=== PATIENT | male | born 1955 | race Caucasian/White ===

== ENCOUNTER 2017-01-25 19:42 | Emergency (ER) | payer MEDICARE, OTHER ==
--- NOTE | ~2017-01-25 | CR181 ---
[facility]. [facility] A Service of [facility] & [facility] RADIOLOGY TEXT RESULTS PATIENT: TAMIR BARRETT JR LOCATION: SED : 55 UNIT #: [id number] AGE: [address]: Gabriel Persaud SEX: M ORDER DR: [id number] [place] [id number] E MR#: [id number] Acc #: [id number] NAME: TAMIR BARRETT : 1955 SEX: M STUDY DATE/TIME: 01/25/2017 19:40 UNIT: SED ROOM: STUDY DESCRIPTION: CR Lumbar Spine 2 or 3 Views Attending Physician: Gabriel Persaud P.A.-C. Ordering Physician: Gabriel Persaud P.A.-C. Primary Care Physician: Galina Delgado M.D. MEDICAL IMAGING REPORT This report is preliminary unless electronic signature is present. EXAM Lumbar spine 3 views HISTORY Back pain for 4 days after a fall. FINDINGS 3 views of the lumbar spine demonstrate moderate lumbar curve. Multilevel fusion from the ipk-ta-nhwou lumbar spine. Low lumbar laminectomies. Moderate multilevel hypertrophic and degenerative changes. Mild chronic compression of the superior endplate of L5. IMPRESSION No acute findings. Multilevel lub-wn-zraaa lumbar spinal fusion and lower lumbar laminectomies. Moderate multilevel degenerative and hypertrophic changes. Dictated by... James Acevedo M.D. THIS IS AN ELECTRONICALLY VERIFIED REPORT James Acevedo M.D. at 01/27/2017 3:28 PM ZACK/uysuf TD: 01/26/2017 10:49 JOB #: [id number] MEDICAL IMAGING REPORT
--- NOTE | ~2017-01-25 | CR63 ---
[facility] [place]. [facility] A Service of [facility] & [facility] RADIOLOGY TEXT RESULTS PATIENT: TAMIR BARRETT JR LOCATION: SED : 55 UNIT #: [id number] AGE: [address]: Gabriel Persaud SEX: M ORDER DR: [id number] [place] [id number] E MR#: [id number] Acc #: [id number] NAME: TAMIR BARRETT : 1955 SEX: M STUDY DATE/TIME: 01/25/2017 19:40 UNIT: SED ROOM: STUDY DESCRIPTION: CR Chest 2 View Attending Physician: Gabriel Persaud P.A.-C. Ordering Physician: Gabriel Persaud P.A.-C. Primary Care Physician: Galina Delgado M.D. MEDICAL IMAGING REPORT This report is preliminary unless electronic signature is present. EXAM PA and lateral chest HISTORY Right lower back pain and cough for 4 days. Recent fall. FINDINGS 2 views of the chest demonstrate the cardiac size and pulmonary vascularity are normal. Spinal stimulator leads extend over the mid and lower thoracic spinal canal. No airspace consolidation or pleural effusion. Mild linear atelectasis or scarring in the lateral left base. Left shoulder prosthesis. IMPRESSION No acute findings and no active disease in the chest. Dictated by... James Acevedo M.D. THIS IS AN ELECTRONICALLY VERIFIED REPORT James Acevedo M.D. at 01/27/2017 3:28 PM DFL/ashu TD: 01/26/2017 10:02 JOB #: [id number] MEDICAL IMAGING REPORT
[~2017-01-25 19:42] MED LIST: ACCUPRIL10 MG PO; ACCUPRIL5 MG PO; ADVAIR 250-501 EACH IH; ADVAIR 500-501 EACH IH; ADVAIR 500-501 EACH IN; ALBUTEROL MININEB; ALBUTEROL1.25 MG/3 NEB; ALBUTEROL17 GM INH; ALPRAZOLAM PO; ALPRAZOLAM0.25 MG PO; AMBIEN10 MG PO; AMITRIPTYLINE100 MG PO; ASPIRIN EC81 M1 PO; ASPIRIN ENTERI325 M1 PO; ASPIRIN325 M1 PO; ASPIRIN81 M2 PO; ASTELIN; ASTELIN137 MCG; ASTELIN137 MCG INH; ASTELIN137 MCG NS; ASTEPRO137 MCG/0.; ASTEPRO205.5 MCG/; ATENOLOL50 MG PO; AUGMENTIN PO; BACLOFEN10 MG PO; BAYER CHEWABLE81 MG; BUPROPION HCL150 M1 PO; CARVEDILOL12.5 MG PO; CIPRO PO; CLEOCIN PO; COMBIVENT U/D3 M1 NEB; COREG12.5 MG PO; CYMBALTA PO; DIOVAN160 MG PO; EFFIENT10 MG PO; FISH OIL 1,0001 CA2 PO; FISH OIL 1,0001 EAC1 PO; FISH OIL 1,0001 EAC2 PO; FISH OIL 1,001000 MG PO; FISH OIL 1,2001 EAC2 PO; FISH OIL 1,21 CAP.EC PO; FLEXERIL10 M1 PO; FLEXERIL10 MG PO; FLONASE 0.05% N16 G1; FLONASE 0.05% N16 G1 NS; FLONASE 0.05% N16 GM; FLONASE16 GM; FLUCONAZOLE200 M1; GLUCOPHAGE500 MG PO; HUMALOG100 U/M1 SUBQ; HUMALOG100 U/M2; HUMALOG100 U/M2 SQ; HUMALOG100 U/ML; HUMIBID; HYDROCODON-ACE1 EAC5 PO; L-METHYL-B6-B11 EACH PO; LANTUS SOLOSTAR3 ML SUBQ; LANTUS100 U/M1 SUBQ; LANTUS100 U/ML SQ; LANTUS100 UNITS/ SUBQ; LEVAQUIN750 M1 PO; LEVOFLOXACIN500 MG PO; LIPITOR PO; LIPITOR20 MG PO; LISINOPRIL5 MG PO; LO-DOSE ASPIRIN81 M1; LORTAB 7.5-5001 TAB PO; LYRICA300 MG PO; METFORMIN HCL500 M1 PO; METFORMIN PO; MONTELUKAST SOD10 MG PO; MULTIPLE VITAMI1 T11 PO; NEURONTIN300 MG PO; NIACIN1000 MG PO; NITROGLYGERIN0.4 MG SL; NITROSTAT0.4 MG SL; NOVOLOG; NOVOLOG100 U/M1; NOVOLOG100 U/M2 SQ; NOVOLOG100 U/ML SUBQ; OMEPRAZOLE40 MG PO; OXYCODONE HCL10 MG PO; PERCOCET 5-3251 TAB PO; PERCOCET5/325 PO; PHENERGAN25 M1; PHENERGAN25 M1 PO; PHENERGAN25 MG PO; PRILOSEC20 MG PO; PRILOSEC40 MG PO; PROAIR HFA8.5 GM; PROAIR HFA8.5 GM IH; PROAIR HFA8.5 GM INH; PROVENTIL0.83 MG/ML IH; PROVENTIL0.83 MG/ML IN; PROVENTIL0.83 MG/ML NEB; SEE LIST; SPIRIVA18 MCG INH; SPIRIVA18 MCG PO; SUPHEDRINE SINU30 MG PO; SYMBICORT 16010.2 GM; SYMBICORT INH; TOVIAZ8 MG PO; TRAMADOL HCL50 M1 PO; TYLENOL #3 PO; VICODIN 5/1 TAB 5/50 PO; XANAX0.5 MG PO; ZESTRIL5 MG PO; ZOFRAN PO; ZOLPIDEM TARTRA10 M1 PO; ZYRTEC PO; ZYRTEC10 M2 PO; [UNRECOGNIZED DRUG - CODE]; [UNRECOGNIZED DRUG - OTHER] PO; [UNRECOGNIZED DRUG - OTHER] TOP
== END 2017-01-25 20:38 | disposition home or self-care (01) ==
LOC: SED 19:42
DX: S39.92XA Unspecified injury of lower back, initial encounter (principal); S29.9XXA Unspecified injury of thorax, initial encounter; F17.210 Nicotine dependence, cigarettes, uncomplicated; Z88.2 Allergy status to sulfonamides; Z88.0 Allergy status to penicillin; Z88.5 Allergy status to narcotic agent; Z79.899 Other long term (current) drug therapy; W18.39XA Other fall on same level, initial encounter; Y92.098 Other place in other non-institutional residence as the place of occurrence of the external cause
CPT/HCPCS: 71020; 72100; 99283

== ENCOUNTER → 2017-04-17 | Outpatient (CLI) | payer OTHER ==
[~2017-04-17] MED LIST changes: +ALPRAZOLAM0.5 MG PO; +AMRIX15 M1 PO; +ANORO ELLIPTA1 EACH INH; +BUPROPION XL150 MG PO; +DULOXETINE HCL60 MG PO; +IBUPROFEN800 MG PO; +LANTUS100 U/ML SUBQ; +LIPITOR40 MG PO; +NEURONTIN PO; +PERCOCET 5/321 UDTAB PO; +RESTORIL15 MG PO; +SINGULAIR PO; +TOPROL XL50 MG PO; +VESICARE PO; +ZOFRAN ODT4 MG SL
--- NOTE | ~2017-04-17 | XA35 ---
[facility] A Service of [facility] & [facility] RADIOLOGY TEXT RESULTS PATIENT: TAMIR BARRETT JR LOCATION: [facility] : 55 UNIT #: [id number] AGE: [address]: TYLER SAL APRN SEX: M ORDER DR: [id number] [place] [id number] [facility]. [place], [place] [address] [id number] O MR#: [id number] Acc #: [id number] NAME: TAMIR BARRETT JR : 1955 SEX: M STUDY DATE/TIME: 04/17/2017 10:44 UNIT: [facility] ROOM: STUDY DESCRIPTION: XA Arthrogram Shoulder Rt Attending Physician: Tyler Sal Aprn Referring Physician: Tyler Sal Aprn Ordering Physician: Tyler Sal Aprn Primary Care Physician: Galina Delgado M.D. MEDICAL IMAGING REPORT This report is preliminary unless electronic signature is present PROCEDURE Right shoulder arthrogram. INDICATION Right shoulder pain. Prior rotator cuff surgery. The fluoroscopy time was 1.3 minutes. The reference air kerma is 13 mg. Risks, benefits and alternatives of the procedure were discussed with the patient, informed consent was obtained. In the procedure room, a time-out was performed confirming correct patient and procedure. All elements maximum sterile-barrier technique utilized according guidelines appropriate for the procedure. TECHNIQUE/FINDINGS The patient was placed on the fluoroscopic table and skin overlying the right shoulder was prepped and draped in the usual sterile fashion. 1% lidocaine was utilized to anesthetize the skin and underlying subcutaneous tissues. Next, under fluoroscopic guidance, a 22-gauge needle was advanced into the shoulder joint space using the interval approach. Approximately 8 mL of iodinated contrast was then injected into the joint space. The needle was removed and a sterile dressing was applied. Spot images were taken. Patient was then taken to CT for completion of the exam. IMPRESSION Technically successful right shoulder arthrogram in preparation for CT arthrography. Dictated by... Carlos Ortega M.D. THIS IS AN ELECTRONICALLY VERIFIED REPORT [facility] A Service of [facility] & [facility] RADIOLOGY TEXT RESULTS PATIENT: TAMIR BARRETT JR LOCATION: [facility] #: [id number] : 55 UNIT #: [id number] AGE: [address]: TYLER SAL APRN SEX: M ORDER DR: Carlos Ortega M.D. at 04/18/2017 9:50 AM KATHY/obey TD: 04/17/2017 21:40 JOB #: [id number] MEDICAL IMAGING REPORT Page 1 of 1 COPY
--- NOTE | ~2017-04-17 | CT128 ---
[facility] A Service of [facility] & [facility] RADIOLOGY TEXT RESULTS PATIENT: TAMIR BARRETT JR LOCATION: [facility] : 55 UNIT #: [id number] AGE: [address]: TYLER SAL APRN SEX: M ORDER DR: [id number] [facility] [address] [place], [place] [address] [id number] O MR#: [id number] Acc #: [id number] NAME: TAMIR BARRETT JR : 1955 SEX: M STUDY DATE/TIME: 04/17/2017 11:10 UNIT: [facility] ROOM: STUDY DESCRIPTION: CT Upper Ext Rt W Cont Attending Physician: Tyler Sal Aprn Referring Physician: Tyler Sal Aprn Ordering Physician: Tyler Sal Aprn Primary Care Physician: Galina Delgado M.D. MEDICAL IMAGING REPORT This report is preliminary unless electronic signature is present EXAM CT arthrogram right shoulder HISTORY 62-year-old male with a glenohumeral joint osteoarthritis. Complains of shoulder pain. Evaluate for rotator cuff tear. History of rotator cuff repair in 2003. Pain beginning 2-3 weeks ago, but getting worse. COMPARISON Conventional arthrogram 04/17/[address] arthrogram was performed of the right shoulder following the intraarticular injection of water-soluble contrast. Examination demonstrates mild superior subluxation of the humeral head. Morphologic changes along the undersurface of the acromion suggest previous acromioplasty. Minimal AC joint arthropathy. Early glenohumeral joint osteoarthritis with a small osteophyte, inferior aspect of the humeral head. Contrast is seen within the glenohumeral joint with communication of the subacromial-subdeltoid bursa through a full-thickness tear within the critical zone of the rotator cuff, primarily the supraspinatus tendon, measuring 2 cm medial to lateral x 2.2 cm AP dimension. There is also a second visible tear at the anterior distal footplate insertion of the supraspinatus tendon, measuring about 1.2 cm medial to lateral x 1.7 cm AP dimension. Suture anchors are noted about the lateral aspect of the humeral head. The infraspinatus, teres minor, and subscapularis tendons appear intact. Mild atrophy of the supraspinatus muscle. The long tendon of the biceps is not clearly identified, possibly representing a biceps tendon tear. There is truncation in the region of STS. [facility] A Service of [facility] RADIOLOGY TEXT RESULTS PATIENT: TAMIR BARRETT JR [id number] 55 UNIT #: [id number] AGE: [address]: TYLER SAL APRN SEX: M ORDER DR: the biceps anchor, and this may be postsurgical in nature. Correlate clinically. Anterior and posterior labrum unremarkable. Articular cartilage unremarkable. IMPRESSION 1. CT findings compatible with recurrent rotator cuff tear with a 2 x 2.2 cm full-thickness tear within the critical zone of the supraspinatus tendon. I suspect this is in communication with an additional tear along the anterior footplate insertion of the supraspinatus tendon measuring about 1.2 x 1.7 cm. Mild supraspinatus muscle atrophy. 2. Mild AC joint arthropathy. 3. Morphologic changes suggesting previous acromioplasty. 4. Suspected tear of the long tendon of the biceps with no visible tendon seen within the bicipital groove. Dictated by... Jeimy Ortega M.D. THIS IS AN ELECTRONICALLY VERIFIED REPORT Jeimy Ortega M.D. at 04/21/2017 8:01 AM Hang TD: 04/17/2017 17:01 JOB #: [id number] MEDICAL IMAGING REPORT Page 1 of 1 COPY
== END | disposition home or self-care (01) ==
LOC: CIVR 10:06
DX: M19.011 Primary osteoarthritis, right shoulder (principal); M75.121 Complete rotator cuff tear or rupture of right shoulder, not specified as traumatic; Z98.890 Other specified postprocedural states
CPT/HCPCS: 73040; 73201; 77002; Q9967

== ENCOUNTER 2017-06-06 20:01 | Inpatient (IN) | payer OTHER ==
[~2017-06-06] VITALS: Ht 172.7 cm; Wt 98.4 kg
--- NOTE | ~2017-06-06 | CO ---
Unit #: [id number] #: [id number] Patient: TAMIR BARRETT JR [id number] [facility]. [place], [place] [address] [id number] I MR#: [id number] NAME: TAMIR BARRETT JR ROOM: 301 Age: 62 Sex: M Admission Date: 06/07/2017 : 1955 Attending Physician: Luis Mercer M.D. Primary Care Physician: Galina Delgado M.D. Consultation Date: 06/07/2017 CONSULTATION REPORT REASON FOR CONSULTATION Psychosis, agitation, delirium. HISTORY OF PRESENT ILLNESS Mr. Tamir Barrett is a 62-year-old white male, seen in room 301 bed 1 at [facility] on 06/07/2017. The patient was admitted on 06/07/2017. The patient diagnosed with pneumonia and altered mental status. The patient currently receives pain management from pain management doctor and has a pump. On admission, the patient was confused and agitated. The patient was belligerent, aggressive, throwing things, taken out his IV. Subsequently, the patient was given Haldol 10 mg, Cogentin 1 mg, Ativan 1 mg which was somewhat effective. The patient was able to calm down. Needing a sitter. The patient is still picking on things, carrying out conversation, attending to internal stimuli, but redirectable, cooperative, but still having psychotic symptom. No known history of any substance abuse. History of multiple health conditions. The patient's vital signs; temperature 98.3, pulse 116, respirations 18, blood pressure 137/64, oxygen saturations 96%. PAST PSYCHIATRIC HISTORY Unknown for any history of any psychiatric illness except for anxiety. The patient is on Xanax. No history of any suicide attempt or any inpatient treatment. MEDICAL HISTORY The patient is diagnosed with pneumonia, altered mental status, history of chronic pain syndrome, chronic obstructive pulmonary disease, gastroesophageal reflux disease, coronary artery disease, multiple myocardial lesion, spinal stenosis, depression, anxiety, hyperlipidemia, insulin-dependent diabetes mellitus. ALLERGIES To multiple medications including Keflex, penicillin, sulfa. MEDICATIONS The patient is on Lipitor, Amrix, Percocet, Neurontin, ibuprofen, Xanax, VESIcare, Zofran, bupropion, Cymbalta, Restoril, Glucophage, Lantus, Flonase, Toprol, Singulair. FAMILY HISTORY AND SOCIAL HISTORY The patient lives alone. No known history of any abuse. No known history of any illicit drug abuse or alcohol abuse. REVIEW OF SYSTEMS Unit #: [id number] #: [id number] Patient: TAMIR BARRETT JR Complete review of systems is unremarkable except as mentioned above agitation. MENTAL STATUS EXAMINATION Vital signs; temperature 98.3, pulse 116, respirations 18, blood pressure 137/64, oxygen saturation 96%. General appearance; the patient dressed in hospital attire. The patient was picking on things. Mood was labile. Disorganized behavior, disorganized thought process. Speech was rapid and rambling. Oriented in self. Mood and affect, labile. Thought process, circumstantial. Thought content, guarded and paranoid, but denied any thoughts of harming self or others, but aggressive behavior, hostile, and agitated. Recent and remote memory, impaired. Language fair. Fund of knowledge, impaired. Insight and judgment, impaired. DIAGNOSES Psychiatric: Delirium, F05; psychosis, not otherwise specified, F29.0; major depressive disorder, recurrent, severe, F31.9. Secondary diagnosis: Deferred. Medical diagnosis: Please refer to H and P. Stressors: Psychosocial stressors. ASSESSMENT AND PLAN 1. Supportive psychotherapy and psychoeducation provided to the patient, but the patient unable to comprehend much. 2. Advised to continue with one-on-one sitter at this time for the patient's safety. 3. Advised to start the patient on Haldol 5 mg t.i.d., Cogentin 1 mg t.i.d. and Ativan 1 mg t.i.d. Advised to hold medication if the patient too sleepy. If unable to take p.o., recommending to use intramuscular route. Also plan to cut back on the patient's antidepressant at this time and consider to start at later date. We will continue to follow. Please feel free to call if any questions telephone [phone]. Dictated by... Zurdo Chow M.D. TEVIN/que TD: 06/08/2017 21:06 JOB #: [id number] CONSULTATION REPORT Page 1 of 1 X Zurdo Chow MD CONSULTATION REPORT
--- NOTE | ~2017-06-06 | EKG ---
PATIENT: TAMIR BARRETT UNIT #: [id number] Ventricular Rate: 121 BPM Atrial Rate: 121 BPM P-R Interval: 174 ms QRS Duration: 108 ms Q-T Interval: 312 ms QTC Calculation(Bezet): 443 ms P Denver: 59 degrees Calculated R Denver: 18 degrees Calculated T Denver: 64 degrees Diagnosis Line: Sinus tachycardia Diagnosis Line: Otherwise normal ECG Diagnosis Line: When compared with ECG of 06-JUN-2017 21:33, Diagnosis Line: (unconfirmed) Diagnosis Line: No significant change was found Diagnosis Line: Confirmed by JESSICA AVILA MD ([id number]) on Diagnosis Line: 06/07/2017 5:42:15 PM INTERPRETING MD: AUSTIN OKEEFE
--- NOTE | ~2017-06-06 | HP ---
Unit #: [id number] #: [id number] Patient: TAMIR BARRETT JR [id number] [place] [address] [id number] [facility]. [place], [place] [address] [id number] I MR#: [id number] NAME: TAMIR BARRETT JR ROOM: 301 Age: 62 Sex: M Admission Date: 06/07/2017 : 1955 Attending Physician: Ottoniel Fisher M.D. Primary Care Physician: Galina Delgado M.D. HISTORY AND PHYSICAL DIAGNOSIS ON ADMISSION 1. Pneumonia. 2. Altered mental status. HISTORY OF PRESENT ILLNESS This is a 62-year-old male, who presented to [facility] with weakness. As per patient, he was in his usual state of health and one week ago he went to his pain management doctor, and the patient believes that he changed his medication. The patient stated that he started feeling a bit confused and yesterday he was very confused and agitated. Therefore, he was brought to the hospital. The patient stated that he was seeing things and people who were not there. He feels better now. In the emergency room, the patient was diagnosed with pneumonia and it was decided to admit him in the hospital. The patient is complaining of chills but denies having any fever. He also complained of nausea but denies vomiting or abdominal pain. The patient complains of shortness of air with ambulation. He denies headache, visual problems, rectal bleeding, or blood in urine. There is no history of recent weight loss or loss of appetite. PAST MEDICAL HISTORY 1. History of chronic pain syndrome. 2. Chronic obstructive pulmonary disease. 3. Gastroesophageal reflux disease. 4. Coronary artery disease. 5. Multiple myocardial infarctions. 6. Chronic low back pain with pain pump. 7. Coronary artery disease. 8. Spinal stenosis. 9. Depression. 10. Anxiety disorder. 11. Hyperlipidemia. 12. Insulin dependent diabetes mellitus. PAST SURGICAL HISTORY 1. Cardiac stent in place in 2010. 2. Back surgery. 3. Mastoidectomy. 4. Repair of deviated septum. 5. Right shoulder repair. 6. Carpal tunnel release. Unit #: [id number] #: [id number] Patient: TAMIR BARRETT JR 7. Left hand surgery. 8. Rotator cuff repair, right. SOCIAL HISTORY The patient lives alone, smokes one pack of cigarettes per day for the past many years, denies drinking or use of illicit drugs. FAMILY HISTORY Positive for heart disease. ALLERGIES The patient is allergic to multiple medications including, Keflex, penicillins, sulfa. HOME MEDICATIONS The patient is on: 1. Lipitor 40 mg p.o. q.h.s. 2. Amrix 15 mg p.o. daily 3. Percocet 5 mg 1-2 tablets q.4h p.r.n. 4. Neurontin 1200 mg p.o. t.i.d. 5. Ibuprofen 800 mg p.o. b.i.d. 6. Alprazolam 0.5 mg p.o. t.i.d. p.r.n. 7. Vesicare 5 mg p.o. daily 8. Zofran 4 mg q.4h p.r.n. 9. Anoro Ellipta one inhalation daily 10. Bupropion 150 mg p.o. b.i.d. 11. Cymbalta 60 mg p.o. daily 12. Restoril 15 mg p.o. q.h.s. 13. Glucophage 500 mg p.o. b.i.d. 14. Albuterol two puffs q.6h p.r.n. 15. Lantus 34 units subcu q.h.s. 16. Flonase nasal spray daily 17. Toprol XL 50 mg daily 18. Singulair 10 mg p.o. daily PHYSICAL EXAMINATION GENERAL: The patient was lying comfortably in bed, not in any obvious acute distress. VITAL SIGNS: Reveal a temperature of 98.6, pulse is 116 per minute, respiratory rate is 18 per minute, and blood pressure is 137/64. HEENT EXAMINATION: Revealed no conjunctival congestion. Sclerae is nonicteric. NECK: Supple. Trachea is central. RESPIRATORY EXAMINATION: Revealed breath sounds equal bilaterally. There are no wheezes or crackles. HEART: Regular rate and rhythm. S1 and S2. ABDOMEN: Soft and nontender. Bowel sounds are present in all four quadrants. NEUROLOGICAL: The patient is alert to person, place and time. Power is 5/5 bilaterally. Sensations are grossly intact. SKIN: Warm and dry. DIAGNOSTIC STUDIES LABORATORY: Labs on admission, the patient's creatinine is 0.9, sodium 136, potassium 3.7, AST and ALT within normal limits. Troponin was 0.03, BNP was 56. WBC is 14.3, hemoglobin is 10.8, platelet count is 234. Urine drug screen was positive for opiates and tricyclic antidepressants. Unit #: [id number] #: [id number] Patient: TAMIR BARRETT JR IMAGING: CT scan of the head, did not reveal any acute intracranial abnormalities. Chest x-ray revealed mild patchy infiltrates in the mid and lower lungs bilaterally. CARDIOVASCULAR: EKG revealed sinus tachycardia. ASSESSMENT/PLAN Hwshe-mjj-gfxm-old male, presented to [facility] with altered mental status: 1. Altered mental status, likely secondary to the patient's pain pump and medication change, we will request Dr. Ren Wright to see the patient in consultation. He is gradually improving. 2. Pneumonia, bilaterally, community acquired, the patient is on antibiotics, will observe the patient closely. 3. History of depression and anxiety disorder, will request Dr. Chow to see the patient in consultation and is currently on a 72-hour hold. 4. Type 2 diabetes mellitus, will do serial Accu-Cheks, place the patient on sliding scale. 5. Anxiety disorder, patient's Ativan. 6. Hyperlipidemia. The patient is on Lipitor. The patient is a full code. The plan was discussed in detail with the patient who showed complete understanding. Dictated by Dipesh Toribio/itzel TD: 06/07/2017 15:26 JOB #: [id number] HISTORY AND PHYSICAL Page 1 of 1 X Ottoniel Fisher MD X HISTORY AND PHYSICAL
--- NOTE | ~2017-06-06 | CT71 ---
[facility] A Service of [facility] RADIOLOGY TEXT RESULTS PATIENT: TAMIR BARRETT JR LOCATION: [facility] : 55 UNIT #: [id number] AGE: [address]: Ottoniel Fisher MD SEX: M ORDER DR: [id number] [facility] [address] [place], [place] [address] [id number] I MR#: [id number] Acc #: [id number] NAME: TAMIR BARRETT JR : 1955 SEX: M STUDY DATE/TIME: 06/06/2017 23:04 UNIT: A U ROOM: [address] [place] [address] DESCRIPTION: CT Head Wo Contrast Attending Physician: Evangelist Zhao M.D. Ordering Physician: Fabián Morin D.O. Primary Care Physician: Galina Delgado M.D. MEDICAL IMAGING REPORT This report is preliminary unless electronic signature is present EXAM CT head without contrast INDICATIONS Confusion since this morning. PROCEDURE Unenhanced CT head. This CT exam was performed with one or more of the following radiation dose reduction techniques: automatic control, adjustment of mA and/or kV according to patient size, and iterative reconstruction. COMPARISON 08/27/2016 FINDINGS No acute hemorrhage, abnormal mass effect, extraaxial fluid collection or hydrocephalus. Previous left mastoidectomy. Paranasal sinuses are clear. No calvarial fracture. No definitive evidence for an acute or early subacute large territory infarct. IMPRESSION No acute intracranial findings Dictated by... Deon Zheng M.D. THIS IS AN ELECTRONICALLY VERIFIED REPORT Deon Zheng M.D. at 06/07/2017 10:26 PM SCOTT/debbie TD: 06/07/2017 05:48 JOB #: [id number] [facility] A Service of [facility] RADIOLOGY TEXT RESULTS PATIENT: TAMIR BARRETT JR LOCATION: [facility] : 55 UNIT #: [id number] AGE: [address]: Ottoniel Fisher MD SEX: M ORDER DR: MEDICAL IMAGING REPORT Page 1 of 1 COPY
--- NOTE | ~2017-06-06 | CO ---
Unit #: [id number] #: [id number] Patient: TAMIR BARRETT JR [id number] [facility] [address] [place], [place] [address] [id number] I MR#: [id number] NAME: TAMIR BARRETT JR ROOM: 301 Age: 62 Sex: M Admission Date: 06/07/2017 : 1955 Attending Physician: Luis Mercer M.D. Primary Care Physician: Galina Delgado M.D. Consultation Date: 06/08/2017 CONSULTATION REPORT DISCUSSION Mr. Tamir Barrett is a 62-year-old white male, seen in room 301, bed 1 on 06/08/2017 at [facility]. The patient was seen as a followup. The patient was agitated this morning and aggressive, hostile, and needing one-to-one monitoring and was given Haldol 10 mg, Cogentin 1 mg, Ativan 1 mg intramuscular as a now dose. The patient's Haldol was changed yesterday and tolerating medication fairly well. The patient has a history of previous treatment outpatient and carries a diagnosis of bipolar mood disorder. The patient's medication antidepressant was discontinued yesterday considering possible being in a manic state. The patient is currently on Haldol 5 mg t.i.d., no side effects from medication. Still attending to internal stimuli, talking to imaginary people, needing one-to-one monitoring, disorganized behavior, and disorganized thought process. The patient's vital signs; temperature 97.6, heart rate 108, respiratory rate 22, blood pressure 108/42, oxygen saturation 97%. REVIEW OF SYSTEMS Complete review of systems is unremarkable except as mentioned above. MENTAL STATUS EXAMINATION General appearance; the patient dressed in hospital attire, sitting in chair, constantly fiddling with wires. Attention span and concentration, poor. Speech was disorganized. Oriented in place and person. Mood and affect, labile. Thought process, circumstantial. Thought content; guarded, paranoid, mood lability, but denied any thoughts of harming self or others, but having disorganized behavior, paranoid, attending to internal stimuli. Recent and remote memory, poor. Language, fair. Fund of knowledge, fair to slightly impaired. Insight and judgment, impaired. DIAGNOSES Psychiatric: Psychosis, not otherwise specified, F29.0; delirium, F05; major depressive disorder, recurrent, severe, F33.2; bipolar mood disorder, recurrent, mixed, F31.9. ASSESSMENT/PLAN 1. Supportive psychotherapy and psychoeducation provided to the patient, but the patient unable to comprehend much. 2. Recommending at this time to continue with one-to-one monitoring. Continue with current medication and [facility] as the patient is medically stable for inpatient psychiatric stabilization. Unit #: [id number] #: [id number] Patient: TAMIR BARRETT Dictated by... Dipesh Gauthier/que TD: 06/09/2017 01:30 JOB #: [id number] CONSULTATION REPORT Page 1 of 1 X Zurdo Chow MD X CONSULTATION REPORT
--- NOTE | ~2017-06-06 | CR72 ---
[facility] A Service of [facility] & [facility] RADIOLOGY TEXT RESULTS PATIENT: TAMIR BARRETT JR LOCATION: [facility] 301- : 55 UNIT #: [id number] AGE: [address]: Ottoniel Fisher MD SEX: M ORDER DR: [id number] [facility] [address]. [place], [place] [address] [id number] MR#: [id number] Acc #: [id number] NAME: TAMIR BARRETT JR : 1955 SEX: M STUDY DATE/TIME: 06/06/2017 20:58 UNIT: CEDOF ROOM: 75062 STUDY DESCRIPTION: CR Chest Single View Portable Attending Physician: Evangelist Zhao M.D. Ordering Physician: Fabián Morin D.O. Primary Care Physician: Galina Delgado M.D. MEDICAL IMAGING REPORT This report is preliminary unless electronic signature is present EXAM Portable chest HISTORY Shortness of air for 6 days. Cough and congestion. FINDINGS Mild patchy interstitial infiltrates in the mid and lower lungs bilaterally are new compared to 01/25/2017. Consider infectious or inflammatory etiologies or interstitial pulmonary edema. No focal consolidation of the remainder of the lungs. Remainder of the chest is stable including spinal stimulator leads overlying the mid and lower thoracic spine. Dictated by... James Acevedo M.D. THIS IS AN ELECTRONICALLY VERIFIED REPORT James Acevedo M.D. at 06/07/2017 6:10 PM DFL/debbie TD: 06/07/2017 03:27 JOB #: [id number] MEDICAL IMAGING REPORT Page 1 of 1 COPY
--- NOTE | ~2017-06-06 | DS ---
Unit #: [id number] #: [id number] Patient: TAMIR BARRETT JR [id number] [address] [place], [place] [address] [id number] I MR#: [id number] NAME: TAMIR BARRETT JR ROOM: 301 Age: 62 Sex: M Admission Date: 06/07/2017 : 1955 Discharge Date: 06/08/2017 Attending Physician: Luis Mercer M.D. Primary Care Physician: Galina Delgado M.D. DISCHARGE SUMMARY PRIMARY DIAGNOSIS Toxic encephalopathy/psychosis/manic episode. SECONDARY DIAGNOSES 1. Pneumonia. 2. Diabetes mellitus type 2. 3. Chronic back pain. 4. Coronary artery disease, clinically stable, with history of stent. HISTORY OF PRESENT ILLNESS/HOSPITAL COURSE Mr. Tamir Barrett is a 62-year-old white male with a history of polysubstance abuse and alcohol abuse, although he denies any recently. He is on chronic pain management with Dr. Ren Wright and did have his pain pump adjusted approximately a week before admission with an increased dose. Pain management did come in and decrease his opiate settings by 1/3 on the ; however, this did not make any changes, and his alterations in mental status are not really consistent with overdose of opiates alone. He denies any recent alcohol abuse, and while some of his symptoms are similar to delirium tremens, this seems more likely to be an acute manic episode or an acute psychosis. He was treated for his pneumonia with Levaquin and has been showing clinical improvement. He has been afebrile, and his white blood cell count has been going down. We will continue him on Levaquin for an additional 7 days at discharge. He needs continued inpatient psychiatric treatment and will be transferred to [facility]. DISCHARGE DISPOSITION [facility]. DISCHARGE STATUS Medically stable but not stable psychiatrically. DISCHARGE ACTIVITY Ad sudhir. DISCHARGE DIET Diabetic, low salt diet. DISCHARGE MEDICATIONS 1. ProAir HFA 2 puffs q.6 hours p.r.n. shortness of breath. 2. Flonase 0.05% nasal spray 1 spray NA daily. 3. Trazodone 50 mg p.o. q.h.s. p.r.n. insomnia. 4. Glucophage 500 mg p.o. b.i.d. Unit #: [id number] #: [id number] Patient: TAMIR BARRETT JR 5. Zofran 4 mg p.o. q.4 hours p.r.n. nausea. 6. Anoro Ellipta 62.5/25 mcg 1 inhalation daily. 7. Cogentin 1 mg p.o. or IM t.i.d. 8. Haldol 5 mg either p.o. or IM t.i.d. 9. Ativan 1 mg p.o. or IM t.i.d. 10. Metoprolol succinate XL 100 mg p.o. once daily. 11. VESIcare 5 mg p.o. daily. 12. Lipitor 40 mg p.o. q.h.s. 13. Levemir 17 units subcu b.i.d. 14. NovoLog medium dose sliding scale a.c. and q.h.s. 15. Singulair 10 mg p.o. daily. 16. Flexeril 15 mg p.o. daily at 1800 hours. 17. Levaquin 750 mg p.o. daily for 7 more days. Dictated by... Dipesh Willoughby/sebastian TD: 06/08/2017 14:55 JOB #: [id number] DISCHARGE SUMMARY Page 1 of 1 X Luis Mercer MD X DISCHARGE SUMMARY
[~2017-06-06 20:01] MED LIST changes: -ALPRAZOLAM0.5 MG PO; -AMRIX15 M1 PO; -ANORO ELLIPTA1 EACH INH; -BUPROPION XL150 MG PO; -DULOXETINE HCL60 MG PO; -IBUPROFEN800 MG PO; -LANTUS100 U/ML SUBQ; -LIPITOR40 MG PO; -NEURONTIN PO; -PERCOCET 5/321 UDTAB PO; -RESTORIL15 MG PO; -SINGULAIR PO; -TOPROL XL50 MG PO; -VESICARE PO; -ZOFRAN ODT4 MG SL
[2017-06-06 21:53] LABS: BASOPHIL# 0.1 X10e3 (0-0.3); BASOPHIL% 0.6 % (0-2.5); HEMATOCRIT 34.3 % (38.0-50.0); HEMOGLOBIN 11.2 gm/dL (13.0-16.0); LYMPHOCYTE# 1.8 X10e3 (1.0-3.5); LYMPHOCYTE% 9.5 % (17.0-45.0); MEAN CELL VOLUME 88.2 FL (83-96); MEAN CORPUSCULAR HEMOGLOBIN 28.8 PG (28-34); MEAN CORPUSCULAR HGB CONC 32.6 g/dL (30-36); MEAN PLATELET VOLUME 8.2 FL (6.5-11.5); MONOCYTE# 1.5 X10e3 (0-1.0); MONOCYTE% 7.7 % (3.0-12.0); NEUTROPHIL# 15.6 X10e3 (1.5-7.1); NEUTROPHIL% 82.2 % (40-75); PLATELET COUNT 255 X10e3 (140-420); RED BLOOD COUNT 3.89 X10e (3.90-5.60); RED CELL DISTRIBUTION WIDTH 14.1 % (11.0-15.5)
[2017-06-06 21:54] LABS: DIFF IND YES
[2017-06-06 22:04] LABS: INR 1.2; PARTIAL THROMBOPLASTIN TIME 36.2 SECONDS (23.5-31.3); PROTHROMBIN TIME (PATIENT) 12.7 SECONDS (10.0-11.7)
[2017-06-06 22:11] LABS: ACETAMINOPHEN <10 ug/mL; ALCOHOL BLOOD <5 mg/dL ([0,]); SALICYLATE <4.0 mg/dL
[2017-06-06 22:14] LABS: ALBUMIN SERUM 3.4 g/dL (3.5-5.0); BILIRUBIN, DIRECT 0.2 mg/dL (0.0-0.2); BILIRUBIN,INDIRECT 0.8 mg/dL (0.0-0.9); GLOM FILT RATE Estimated 80.3 mL/min (>60); POTASSIUM 3.7 mmol/L (3.5-5.1); PROTEIN TOTAL SERUM 7.4 g/dL (6.0-8.3)
[2017-06-06 22:23] LABS: PLATELET ESTIMATE NORMAL (NORMAL)
[2017-06-06 22:24] LABS: ANISOCYTOSIS SL; POIKILOCYTOSIS SL
[2017-06-06 22:25] LABS: DIFFERENTIAL COMMENT ATY.LYMPHS
[2017-06-07] MEDS ORDERED: LIPITOR40 MG PO (01:06)
[2017-06-07] MEDS ORDERED: AMRIX15 M1 PO (01:07)
[2017-06-07] MEDS ORDERED: PERCOCET 5/321 UDTAB PO (01:08)
[2017-06-07] MEDS ORDERED: NEURONTIN PO (01:09)
[2017-06-07] MEDS ORDERED: IBUPROFEN800 MG PO (01:09)
[2017-06-07] MEDS ORDERED: VESICARE PO (01:10)
[2017-06-07] MEDS ORDERED: ALPRAZOLAM0.5 MG PO (01:10)
[2017-06-07] MEDS ORDERED: ZOFRAN ODT4 MG SL (01:11)
[2017-06-07] MEDS ORDERED: ANORO ELLIPTA1 EACH INH (01:11)
[2017-06-07] MEDS ORDERED: DULOXETINE HCL60 MG PO (01:12)
[2017-06-07] MEDS ORDERED: BUPROPION XL150 MG PO (01:12)
[2017-06-07] MEDS ORDERED: RESTORIL15 MG PO (01:13)
[2017-06-07] MEDS ORDERED: GLUCOPHAGE500 MG PO (01:13)
[2017-06-07] MEDS ORDERED: PROAIR HFA8.5 GM INH (01:14)
[2017-06-07] MEDS ORDERED: LANTUS100 U/ML SUBQ (01:14)
[2017-06-07] MEDS ORDERED: FLONASE 0.05% N16 G1 (01:15)
[2017-06-07] MEDS ORDERED: TOPROL XL50 MG PO (01:15)
[2017-06-07] MEDS ORDERED: SINGULAIR PO (01:16)
[2017-06-07 03:06] LABS: AMPHETAMINE NEG (NEG); BARBITURATES NEG (NEG); BENZODIAZEPINES NEG (NEG); COCAINE NEG (NEG); MARIJUANA NEG (NEG); OPIATES POS (NEG); TRICYCLIC ANTIDEPRESSANTS POS (NEG); U METHADONE NEG (NEG)
[2017-06-07 09:27] LABS: BASOPHIL# 0.1 X10e3 (0-0.3); BASOPHIL% 0.5 % (0-2.5); EOSINOPHIL% 0.1 % (0.0-7.0); HEMATOCRIT 33.4 % (38.0-50.0); HEMOGLOBIN 10.8 gm/dL (13.0-16.0); LYMPHOCYTE# 1.8 X10e3 (1.0-3.5); LYMPHOCYTE% 12.6 % (17.0-45.0); MEAN CELL VOLUME 88.9 FL (83-96); MEAN CORPUSCULAR HEMOGLOBIN 28.7 PG (28-34); MEAN CORPUSCULAR HGB CONC 32.3 g/dL (30-36); MEAN PLATELET VOLUME 8.2 FL (6.5-11.5); MONOCYTE# 1.3 X10e3 (0-1.0); MONOCYTE% 9.1 % (3.0-12.0); NEUTROPHIL# 11.1 X10e3 (1.5-7.1); NEUTROPHIL% 77.7 % (40-75); PLATELET COUNT 234 X10e3 (140-420); RED BLOOD COUNT 3.76 X10e (3.90-5.60); RED CELL DISTRIBUTION WIDTH 14.1 % (11.0-15.5); WHITE BLOOD COUNT 14.3 X10e3 (4.0-10.5)
[2017-06-07 09:30] LABS: DIFF IND NO
[2017-06-07 09:57] LABS: ALBUMIN SERUM 3.1 g/dL (3.5-5.0); BILIRUBIN,TOTAL 0.8 mg/dL (0.2-2.0); BUN/CREATININE RATIO 12.22; CALCIUM SERUM 8.8 mg/dL (8.4-10.2); CREATININE SERUM 0.9 mg/dL (0.6-1.4); GLOM FILT RATE Estimated 91.2 mL/min (>60); POTASSIUM 3.7 mmol/L (3.5-5.1); PROTEIN TOTAL SERUM 6.9 g/dL (6.0-8.3)
[2017-06-08 05:45] LABS: HEMATOCRIT 33.8 % (38.0-50.0); MEAN CELL VOLUME 89.1 FL (83-96); MEAN CORPUSCULAR HGB CONC 32.5 g/dL (30-36); MEAN PLATELET VOLUME 8.3 FL (6.5-11.5); RED BLOOD COUNT 3.79 X10e (3.90-5.60); RED CELL DISTRIBUTION WIDTH 14.3 % (11.0-15.5); WHITE BLOOD COUNT 10.5 X10e3 (4.0-10.5)
[2017-06-08 06:55] LABS: BUN/CREATININE RATIO 15.55; CALCIUM SERUM 9.3 mg/dL (8.4-10.2); CREATININE SERUM 0.9 mg/dL (0.6-1.4); GLOM FILT RATE Estimated 91.2 mL/min (>60); POTASSIUM 3.6 mmol/L (3.5-5.1)
== END 2017-06-08 20:03 | DRG 193 ==
LOC: CED 20:01 → CEDOF 06-07 01:39 → C3A PCU 06-07 01:39
PROVIDERS: Emergency Medicine; Internal Medicine
DX: J18.9 Pneumonia, unspecified organism (principal); G93.41 Metabolic encephalopathy; F33.3 Major depressive disorder, recurrent, severe with psychotic symptoms; F05 Delirium due to known physiological condition; E11.9 Type 2 diabetes mellitus without complications; I25.10 Atherosclerotic heart disease of native coronary artery without angina pectoris; G89.4 Chronic pain syndrome; J44.9 Chronic obstructive pulmonary disease, unspecified; K21.9 Gastro-esophageal reflux disease without esophagitis; I25.2 Old myocardial infarction; M54.5 Low back pain; F41.9 Anxiety disorder, unspecified; E78.5 Hyperlipidemia, unspecified; Z79.4 Long term (current) use of insulin; F17.210 Nicotine dependence, cigarettes, uncomplicated
CPT/HCPCS: 36415; 70450; 71010; 80048; 80053; 80076; 80307; 82947; 83605; 83880; 84484; 85025; 85027; 85379; 85610; 85730; 87040; 93005; 94640; 94760; 96361; 96365; 96367; 99285; G0480; J0515; J1630; J1650; J1815; J1956; J2060

== ENCOUNTER 2017-06-08 13:32 | Inpatient (IN) | payer OTHER ==
[~2017-06-08] VITALS: Ht 172.7 cm; Wt 98.4 kg
--- NOTE | ~2017-06-08 | PN ---
Unit #: [id number] #: [id number] Patient: TAMIR BARRETT JR [id number] [facility] [address] [place] [address] [id number] I MR#: [id number] NAME: TAMIR BARRETT JR ROOM: [facility] Age: 62 Sex: M Admission Date: 06/08/2017 : 1955 Attending Physician: Zurdo Chow M.D. Admitting Physician: Zurdo Chow M.D. Primary Care Physician: Dipesh Mcbride PROGRESS NOTES DATE 06/15/2017 DISCUSSION Tamir Barrett is a 62-year-old male seen on 06/15/2017. Patient interviewed. Chart reviewed. Obtained information from nursing staff. Patient was pacing in the hallway. Mood was labile. Patient was able to carry out a coherent conversation but still tangential, circumstantial, guarded, mood lability. Patient according to staff report at times speaking nonsensically at times. Complete review of system unremarkable. MENTAL STATUS EXAMINATION General appearance, patient dressed casually. Attention span, concentration poor. Oriented in place and person. Mood and affect labile. Speech rapid. Thought process circumstantial. Patient denied any thoughts of harming self or others but guarded, paranoid, above mentioned behavior, disorganized thought process. Recent and remote memory poor. Insight and judgement poor. DIAGNOSES 1. Bipolar mood disorder NOS. 2. Psychosis NOS. ASSESSMENT/PLAN Advised to continue with current medication and therapeutic protocol. If needed, consider further adjustment of medication. Patient is currently on Periactin, Remeron. Also, taking haloperidol 5 mg t.i.d. Dictated by... Dipesh Gauthier/shahida TD: 06/16/2017 15:37 JOB #: [id number] Unit #: [id number] #: [id number] Patient: TAMIR BARRETT JR RAY PROGRESS NOTES Page 1 of 1 X Zurdo Chow MD X PROGRESS NOTE
--- NOTE | ~2017-06-08 | PN ---
Unit #: [id number] #: [id number] Patient: TAMIR BARRETT JR [id number] [facility] [address] [place] [address] [id number] I MR#: [id number] NAME: TAMIR BARRETT JR ROOM: [facility] Age: 62 Sex: M Admission Date: 06/08/2017 : 1955 Attending Physician: Zurdo Chow M.D. Admitting Physician: Zurdo Chow M.D. Primary Care Physician: Dipesh Mcbride PROGRESS NOTES DATE OF SERVICE 06/11/2017 DISCUSSION Mr. Tamir Barrett is a 62-year-old male seen on 06/11/2017. The patient continues to show disorganized behavior, disorganized thought process. Attending to internal stimuli. Guarded, paranoid, agitation. Requiring p.r.n. medication last night, Geodon 20 mg IM and trazodone. The patient still requiring one-to-one monitoring. Complete Review of Systems: Unremarkable. MENTAL STATUS EXAMINATION General Appearance: The patient dressed casually in hospital attire. Attention span, concentration: Poor. Orientation in self. Mood and affect labile. Speech: Disorganized thought process, disorganized, guarded, paranoid, mood lability. Attending to internal stimuli. Recent and remote memory: Poor. Insight and judgment: Poor. DIAGNOSES 1. Psychosis not otherwise specified. 2. Mood disorder not otherwise specified. ASSESSMENT/PLAN Advised to discontinue Ativan. Advised trazodone 100 mg at bedtime. Continue with one-to-one monitoring for safety. If needed, consider further adjustment of medication. Dictated by... Dipesh Gauthier/rafi TD: 06/12/2017 12:12 JOB #: [id number] Unit #: [id number] #: [id number] Patient: TAMIR BARRETT JR RAY PROGRESS NOTES Page 1 of 1 X Zurdo Chow MD PROGRESS NOTE
--- NOTE | ~2017-06-08 | PN ---
Unit #: [id number] #: [id number] Patient: TAMIR BARRETT JR [id number] [facility] [address] [place] [address] [id number] I MR#: [id number] NAME: ATMIR BARRETT JR ROOM: [facility] Age: 62 Sex: M Admission Date: 06/08/2017 : 1955 Attending Physician: Zurdo Chow M.D. Admitting Physician: Zurdo Chow M.D. Primary Care Physician: Dipesh McbrideCE PROGRESS NOTES DATE 06/13/2017 DISCUSSION Tamir Barrett is a 62-year-old male, seen on 06/13/2017. The patient interviewed, chart reviewed, and obtained information from the nursing staff. The patient was able to answer questions more coherently, still has one-to-one monitoring. The patient is able to sleep good, able to answer questions appropriately, cooperative, redirectable. Reported swelling in his left leg. The patient did not show any aggression. The patient was coherent and cooperative. REVIEW OF SYSTEMS Complete review of systems unremarkable. MENTAL STATUS EXAMINATION General appearance: Patient dressed casually. Attention span and concentration, fair. Oriented in time, place, and person. Mood and affect, labile. Speech, monotone. Thought process, concrete. The patient denied any thoughts of harming self or others but somewhat guarded. Recent and remote memory, poor. Insight and judgment, poor. DIAGNOSES 1. Mood disorder, NOS. 2. Psychosis, NOS. ASSESSMENT/PLAN Advised to continue with the current medication and therapeutic protocol, and if needed consider further adjustment of medication. Dictated by... Dipesh Gauthier/itzel TD: 06/15/2017 11:44 JOB #: [id number] Unit #: [id number] #: [id number] Patient: TAMIR BARRETT JRCE PROGRESS NOTES Page 1 of 1 X Zurdo Chow MD PROGRESS NOTE
--- NOTE | ~2017-06-08 | CO ---
Unit #: [id number] #: [id number] Patient: TAMIR BARRETT JR [id number] [place] [address] [id number] I MR#: [id number] NAME: TAMIR BARRETT JR ROOM: P110 Age: 62 Sex: M Admission Date: 06/08/2017 : 1955 Attending Physician: Zurdo Chow M.D. Primary Care Physician: Galina Delgado M.D. Consultation Date: 06/16/2017 CONSULTATION REPORT This is a followup to an initial consult. HISTORY OF PRESENT ILLNESS Tamir has a history of diabetes. His blood sugars have been 87 to 118. He also has depression and has not been eating well. Staff has been concerned about his poor intake. He is a little disoriented and does not answer questions appropriately all the time. PHYSICAL EXAMINATION CARDIAC: Regular rate and rhythm. No murmurs, gallops, or rubs. RESPIRATORY: Clear to auscultation bilaterally. GENERAL: Alert, disoriented, no acute distress. ASSESSMENT AND PLAN Decreased food intake with type 2 diabetes. We will continue with the sliding scale insulin. We will also add Ensure t.i.d. and daily weights in the morning. Please also repeat a BMP in the morning. Dictated by... Opal Esteban/que TD: 06/17/2017 00:45 JOB #: [id number] CONSULTATION REPORT Page 1 of 1 X DARRYN DUPONT APRN X CONSULTATION REPORT
--- NOTE | ~2017-06-08 | HP ---
Unit #: [id number] #: [id number] Patient: TAMIR BARRETT JR [id number] [place] [address] [id number] I MR#: [id number] NAME: TAMIR BARRETT JR ROOM: [facility] Age: 62 Sex: M Admission Date: 06/08/2017 : 1955 Attending Physician: Zurdo Chow M.D. Admitting Physician: Zurdo Chow M.D. Primary Care Physician: Galina Delgado M.D. HISTORY AND PHYSICAL NOTE Tamir is a 62-year-old male admitted to [address] [place] [address] on 06/08/2017 for psychosis. He was transferred here from [facility] where he was admitted on 06/07/2017 for pneumonia. He was started on Levaquin, and blood work was improving. He was transferred here. Reviewed the history and physical from [facility] on 06/07/2017, and there are no changes. Dictated by... Opal Esteban/rafi TD: 06/09/2017 12:46 JOB #: [id number] HISTORY AND PHYSICAL Page 1 of X DARRYN DUPONT APRN HISTORY AND PHYSICAL
--- NOTE | ~2017-06-08 | CO ---
Unit #: [id number] #: [id number] Patient: TAMIR BARRETT JR [id number] [place] [address] [id number] I MR#: [id number] NAME: ATMIR BARRETT JR ROOM: [facility] Age: 62 Sex: M Admission Date: 06/08/2017 : 1955 Attending Physician: Zurdo Chow M.D. Primary Care Physician: Galina Delgado M.D. Consultation Date: 06/08/2017 CONSULTATION REPORT HISTORY OF PRESENT ILLNESS Tamir reports a history of type 2 diabetes. He takes Levemir b.i.d. 17 units at home and metformin p.o. daily. He also reports that recently he has started taking insulin with his meals as well. Today, he had a fasting blood sugar of 208, but his lunchtime blood sugar was 50, dinner was 91 and his bedtime was 139. He denies feeling poorly when his blood sugar was 50, however, he currently is a poor historian. PHYSICAL EXAMINATION CARDIAC: Regular rate and rhythm. No murmurs, gallops, or rubs. RESPIRATORY: Clear to auscultation bilaterally. ASSESSMENT AND PLAN Type 2 diabetes. We will continue with his current regimen. Lowest blood sugar was 50. He has had no other low blood sugars other than that. His blood sugars are consistently less than 70. Please notify me, we will need to change his insulin regimen. Dictated by... Opal Esteban/que TD: 06/11/2017 02:57 JOB #: [id number] CONSULTATION REPORT Page 1 of 1 X DARRYN DUPONT APRN X CONSULTATION REPORT
--- NOTE | ~2017-06-08 | PN ---
Unit #: [id number] #: [id number] Patient: TAMIR BARRETT JR [id number] [facility] [address] [place] [address] [id number] I MR#: [id number] NAME: TAMIR BARRETT JR ROOM: P110 Age: 62 Sex: M Admission Date: 06/08/2017 : 1955 Attending Physician: Zurdo Chow M.D. Admitting Physician: Zurdo Chow M.D. Primary Care Physician: Dipesh Mcbride PROGRESS NOTES DATE 06/16/2017 DISCUSSION Tamir is a 62-year-old male, seen on 06/16/2017. The patient interviewed, chart reviewed, and obtained information from the nursing staff. The patient was isolative, currently off from one-to-one. The patient reports that he could live with his mother. The patient tried to call mom, telephone number [phone], and left a message. The patient was refusing to eat majority of the meals, still isolative, flat affect, sad, dysphoric but the patient is tolerating medication fairly well, redirectable. REVIEW OF SYSTEMS Complete review of systems unremarkable. MENTAL STATUS EXAMINATION General appearance: Patient dressed casually. Attention span and concentration, fair. Oriented in time, place, and person. Mood and affect, sad and dysphoric. Speech, monotone. Thought process, concrete. The patient denied any thoughts of harming self or others but sad and dysphoric, isolative. Recent and remote memory, poor. Insight and judgment, poor. DIAGNOSES 1. Mood disorder, NOS. 2. Psychosis, NOS. ASSESSMENT/PLAN Advised to consider increasing the dosage of Remeron to 30 mg daily, continue with the current medications, if needed consider further adjustment of medication, also consider cutting back on haloperidol. Dictated by... Dipesh Gauthier/itzel Unit #: [id number] #: [id number] Patient: TAMIR BARRETT JR TD: 06/17/2017 06:47 JOB #: [id number] [facility] PROGRESS NOTES Page 1 of 1 X Zurdo Chow MD PROGRESS NOTE
--- NOTE | ~2017-06-08 | PN ---
Unit #: [id number] #: [id number] Patient: TAMIR BARRETT JR [id number] [facility] [address] [place] [address] [id number] I MR#: [id number] NAME: TAMIR BARRETT JR ROOM: [facility] Age: 62 Sex: M Admission Date: 06/08/2017 : 1955 Attending Physician: Zurdo Chow M.D. Admitting Physician: Zurdo Chow M.D. Primary Care Physician: Galina Delgado M.D. [place] PROGRESS NOTES DATE 06/14/2017 DISCUSSION Tamir Barrett is a 62-year-old male, seen on 06/14/2017. The patient interviewed, chart reviewed, and obtained information from the nursing staff. The patient was compliant, cooperative, and redirectable. The patient currently has one-to-one monitoring, making progress. Vital signs, 97.5, 87, 14, and 116/59. The patient was able to carry out a coherent conversation, decrease in paranoid but still tangential speech, racing thoughts, disorganized thought process, medication compliant. REVIEW OF SYSTEMS Complete review of systems unremarkable. MENTAL STATUS EXAMINATION General appearance: Patient dressed in hospital attire. Attention span and concentration, poor. Orientation in self and place. Mood and affect, labile. Speech, rapid. Thought process, circumstantial. The patient denied any thoughts of harming self or others but still disorganized. Recent and remote memory, poor. Insight and judgment, poor. DIAGNOSES 1. Mood disorder, NOS. 2. Psychosis, NOS. 3. Major depressive disorder, recurrent. ASSESSMENT/PLAN Advised to continue with the current medication and therapeutic protocol, and if needed consider further adjustment of medication with a plan to taper off one-to-one monitoring. Dictated by... Zurdo Chow M.D. TEVIN/itzel TD: 06/16/2017 06:11 Unit #: [id number] #: [id number] Patient: TAMIR BARRETT JR JOB #: [id number] [facility] PROGRESS NOTES Page 1 of 1 X Chhibber,Zurdo Z MD X PROGRESS NOTE
--- NOTE | ~2017-06-08 | PN ---
Unit #: [id number] #: [id number] Patient: TAMIR BARRETT JR [id number] [facility] [address] [place] [address] [id number] I MR#: [id number] NAME: TAMIR BARRETT JR ROOM: [facility] Age: 62 Sex: M Admission Date: 06/08/2017 : 1955 Attending Physician: Zurdo Chow M.D. Admitting Physician: Zurdo Chow M.D. Primary Care Physician: Dipesh Mcbride PROGRESS NOTES DATE OF SERVICE: 06/12/2017 DISCUSSION Mr. Bai is a 62-year-old male, seen on 06/12/2017. The patient interviewed, chart reviewed, and obtained information from nursing staff. The patient was compliant and cooperative. Mood was labile. The patient sad and dysphoric, currently on one-to-one monitoring, still somewhat confused. The patient was confused, wanted to about 20 dollars, wandering on the unit, needing redirection, but no agitation. The patient slept good. Making progress. REVIEW OF SYSTEMS Complete review of systems unremarkable. MENTAL STATUS EXAMINATION General appearance, the patient dressed casually. Attention span and concentration was fair to poor. Oriented in self and place. Mood and affect, labile. Speech, slow. Thought process; circumstantial, guarded, paranoid, but denied any thoughts of harming self or others. Recent and remote memory, poor. Insight and judgment, poor. DIAGNOSES 1. Psychosis, not otherwise specified. 2. Delirium, resolving. 3. Mood disorder, not otherwise specified. ASSESSMENT AND PLAN Advised to continue with one-to-one monitoring. Continue with current medication for safety. If needed, consider further adjustment of medication. Dictated by... Dipesh Gauthier/que TD: 06/15/2017 00:26 JOB #: [id number] Unit #: [id number] #: [id number] Patient: TAMIR BARRETT JR [facility] PROGRESS NOTES Page 1 of 1 X Zurdo Chow MD X PROGRESS NOTE
--- NOTE | ~2017-06-08 | PA ---
Unit #: [id number] #: [id number] Patient: TAMIR BARRETT JR [id number] [place] [address] [id number] MR#: [id number] NAME: TAMIR BARRETT JR ROOM: [facility] Age: 62 Sex: M Admission Date: 06/08/2017 : 1955 Date of Assessment: Attending Physician: Zurdo Chow M.D. Admitting Physician: Zurdo Chow M.D. Primary Care Physician: Galina Delgado M.D. PSYCHIATRIC ASSESSMENT INFORMANTS The patient's reliability, poor; chart reliability, good. CHIEF COMPLAINT Aggression, bizarre behavior, confusion, and paranoia. HISTORY OF PRESENT ILLNESS Tamir Barrett is a 62-year-old white male, who was initially admitted to [facility] on 06/07/2017 and discharged on 06/08/2017. The patient was diagnosed with toxic encephalopathy, psychosis, manic episode, also history of pneumonia, diabetes mellitus, chronic back pain. The patient needing one-to-one monitoring during his stay in the hospital. The patient followed by a pain management doctor, Dr. Ren Wright, who adjusted approximately his pump to increase the dosage. The patient was also on multiple other medications. The patient denied any recent use of any alcohol. The patient was in delirium and needing multiple injections of Haldol IM one-to-one monitoring during his stay. The patient was confused, agitated. The patient was extremely confused throughout his stay, but denied any suicidal or homicidal ideation. Needing inpatient admission at this time for psychiatric stabilization. PAST PSYCHIATRIC HISTORY Remarkable for history of treatment for depression and anxiety. No known history of any inpatient treatment. FAMILY HISTORY AND SOCIAL HISTORY The patient lives alone. No support system. No history of abuse. Denied any use of any drugs or alcohol. MEDICAL HISTORY Remarkable for history of pneumonia; diabetes mellitus, type 2; chronic back pain; coronary artery disease. MEDICATIONS The patient was on Lipitor 40 mg at bedtime, Amrix 15 mg daily, Percocet 5 mg 1 to 2 tablets q.4 p.r.n., Neurontin 1200 t.i.d., ibuprofen 800 mg t.i.d., Xanax 0.5 mg t.i.d. p.r.n., VESIcare, Zofran, Anoro Ellipta 1 inhalation daily, bupropion 150 mg b.i.d., Cymbalta 60 mg daily, Restoril 15 mg at bedtime, Glucophage 500 mg b.i.d., albuterol, Lantus, Flonase, Toprol-XL, Singulair. ALLERGIES Unit #: [id number] #: [id number] Patient: TAMIR BARRETT JR No known drug allergies. SUBSTANCE ABUSE HISTORY None. REVIEW OF SYSTEMS HEENT: Eyes, clear. Ears, nose, mouth, and throat; clear. CARDIOVASCULAR: Unremarkable. RESPIRATORY: Unremarkable. GI: Unremarkable. : Unremarkable. SKIN: Unremarkable. LYMPH NODE: Unremarkable. NEUROLOGIC: Unremarkable. ENDOCRINE: Unremarkable. HEMATOLOGIC: Unremarkable. ALLERGIC/IMMUNOLOGIC: Unremarkable. MUSCULOSKELETAL: Muscle strength and tone, no atrophy or abnormal movement. Gait abnormal. MENTAL STATUS EXAMINATION CONSTITUTIONAL: Measurement of vital signs; temperature afebrile, blood pressure 151/98, temperature 98.3, pulse 72. Weight 216 pounds. GENERAL APPEARANCE: The patient dressed in hospital attire. No facial deformity noted. MUSCULOSKELETAL: Please see above. PSYCHIATRIC EXAMINATION Description of speech, disorganized. Description of thought process, circumstantial. Description of association; guarded, paranoid, mood lability, delusional, attending to internal stimuli, carrying out a conversation with imaginary people, but denied any thoughts of harming self or others, but aggressive behavior. Description of the patient's judgment; concerning everyday activity, poor. Social situation, poor. Concerning psychiatric condition, poor. Complete mental status examination; orientation in self. Recent and remote memory, poor. Attention span and concentration, poor. Language, able to name object. Fund of knowledge, poor. Vocabulary, poor. Mood and affect, labile. Insight and judgment, impaired. ASSETS AND LIABILITIES Assets; the patient articulate, able to take care of his ADL. Liability; history of multiple health condition, confusion, depression. ADMITTING DIAGNOSES Psychiatric: Delirium, F05; psychosis, not otherwise specified, F29.0; bipolar mood disorder, recurrent, in mixed state, F31.9; anxiety disorder, not otherwise specified. Secondary diagnosis: Deferred. Medical diagnoses: History of diabetes, coronary artery disease, chronic back pain, pneumonia. Stressors: Psychosocial stressors. PSYCHIATRIC PLAN AND TREATMENT GOAL Unit #: [id number] #: [id number] Patient: TAMIR BARRETT JR 1. Advised to admit the patient on the inpatient unit. Provide safe, supportive, and structured environment. 2. Ordered labs; CBC, CMP, UA, and UDS. 3. Precaution for aggression, needing one-to-one monitoring. 4. The patient to continue with the current medications at discharge from [facility], and make further adjustment of medication if needed. The patient to continue with ProAir HFA 2 puffs q.6 hours p.r.n. for shortness of air, Flonase nasal spray, trazodone 50 mg q.h.s. p.r.n. for sleep, Glucophage 500 mg b.i.d., Zofran, Anoro Ellipta, Cogentin 1 mg t.i.d., Haldol 5 mg t.i.d., Ativan 1 mg t.i.d., VESIcare, Lipitor, Levemir, NovoLog, Singulair, Flexeril, Levaquin 750 mg for 7 days. We will have a medical doctor to follow up on the patient's medical condition and make further adjustment of medication if needed. Treatment goal to attain euthymic mood, gain insight into his problem, and learn coping skills. DISCHARGE PLAN Plan to stabilize the patient and consider followup in outpatient program. ESTIMATED LENGTH OF STAY 2 weeks. Dictated by... Dipesh Gauthier/que TD: 06/10/2017 03:29 JOB #: [id number] PSYCHIATRIC ASSESSMENT Page 1 of 1 X Zurdo Chow MD X PSYCHIATRIC ASSESSMENT
--- NOTE | ~2017-06-08 | PN ---
Unit #: [id number] #: [id number] Patient: TAMIR BARRETT JR [id number] [place] [address] [id number] I MR#: [id number] NAME: TAMIR BARRETT JR ROOM: [facility] Age: 62 Sex: M Admission Date: 06/08/2017 : 1955 Attending Physician: Zurdo Chow M.D. Admitting Physician: Zurdo Chow M.D. Primary Care Physician: Galina Delgado M.D. [facility] PROGRESS NOTES DATE OF SERVICE: 06/10/2017 DISCUSSION Tamir Barrett is a 62-year-old male, seen on 06/10/2017. The patient interviewed, chart reviewed, and obtained information from nursing staff. The patient's behavior continues to be bizarre. The patient was talking in sleep, needing one-to-one monitoring. Yesterday, received Haldol 10, Cogentin 1, Ativan 1 as IM shot as the patient was attacking his one-to-one staff. The patient's behavior was argumentative, confused, believes that he is at work in [place], and argumentative with staff. The patient is currently on Remeron 15 mg at bedtime, Flexeril, Flonase, lorazepam 1 mg t.i.d., haloperidol 5 mg t.i.d., and Cogentin 1 mg t.i.d. If needed, consider further adjustment of medication. MENTAL STATUS EXAMINATION General appearance, the patient dressed in hospital attire. Attention span and concentration, poor. Orientation, unable to assess. Mood and affect, labile. Speech, disorganized. Thought process and association, disorganized. Recent and remote memory, poor. Insight and judgment, poor. DIAGNOSES Bipolar mood disorder, not otherwise specified and psychosis, not otherwise specified. ASSESSMENT AND PLAN Advised to continue with current medication and therapeutic protocol. If needed, consider further adjustment of medication. Continue with one-to-one monitoring at this time for safety of the patient. Dictated by... Zurdo Chow M.D. SZRosalba/que TD: 06/10/2017 19:01 JOB #: [id number] Unit #: [id number] #: [id number] Patient: TAMIR BARRETT JR PROGRESS NOTES Page 1 of 1 X Zurdo Chow MD PROGRESS NOTE
--- NOTE | ~2017-06-08 | PN ---
Unit #: [id number] #: [id number] Patient: TAMIR BARRETT JR [id number] [facility] [address] [place] [address] [id number] I MR#: [id number] NAME: TAMIR BARRETT JR ROOM: [facility] Age: 62 Sex: M Admission Date: 06/08/2017 : 1955 Attending Physician: Zurdo Chow M.D. Admitting Physician: Zurdo Chow M.D. Primary Care Physician: Dipesh Mcbride PROGRESS NOTES DATE 06/12/2017 DISCUSSION Mr. Bai is a 62-year-old male seen on 06/12/2017. The patient interviewed, chart reviewed. Obtained information from nursing staff. The patient was compliant and cooperative. Mood was labile. The patient sad, dysphoric. Currently on one to one monitoring. Still somewhat confused. The patient was confused wanting to borrow twenty dollars, wandering on the unit, needing redirection but no agitation. The patient slept good, making progress. Complete review of systems unremarkable. MENTAL STATUS EXAMINATION General appearance, the patient dressed casually. Attention span and concentration was fair to poor. Oriented to self and place. Mood and affect labile. Speech slow. Thought process circumstantial, guarded, paranoid but denied any thoughts of harming self or others. Recent and remote memory poor. Insight and judgement poor. DIAGNOSES 1. Psychosis NOS. 2. Delirium resolving. 3. Mood disorder NOS. ASSESSMENT/PLAN Advise to continue with one to one monitoring. Continue with current medication for safety. If needed consider further adjustment of medication. Dictated by... Dipesh Gauthier/thai TD: 06/14/2017 23:43 JOB #: [id number] Unit #: [id number] #: [id number] Patient: TAMIR BARRETT JRAVILA PROGRESS NOTES Page 1 of 1 X Zurdo Chow MD PROGRESS NOTE
--- NOTE | ~2017-06-08 | DS ---
Unit #: [id number] #: [id number] Patient: TAMIR BARRETT JR [id number] [place] [address] [id number] I MR#: [id number] NAME: TAMIR BARRETT JR ROOM: [facility] Age: 62 Sex: M Admission Date: 06/08/2017 : 1955 Discharge Date: 06/17/2017 Attending Physician: Zurdo Chow M.D. Primary Care Physician: Galina Delgado M.D. DISCHARGE SUMMARY REASON FOR ADMISSION Depression, altered mental status, psychosis. DIAGNOSTIC STUDIES LABORATORY RESULTS: Remarkable for glucose 114 and BUN 29. HOSPITAL COURSE The patient was admitted to inpatient unit on 06/08/2017 and discharged on 06/17/2017. The patient required initially one-to-one monitoring due to disorganized behavior and hallucination. The patient was treated with behavior management, medication management, psychoeducation, psychotherapy, and structured milieu. The patient was responsive to treatment. Subsequently, the patient was discharged with a plan to follow up in outpatient program. DISCHARGE MEDICATIONS Periactin 4 mg daily for appetite stimulation, Remeron 30 mg at bedtime for depression, Haldol 5 mg at bedtime for psychosis, Cogentin 1 mg at bedtime for EPS symptom. The patient to continue with Singulair 10 mg daily for allergies, Levemir for diabetes, Lipitor, VESIcare, Toprol-XL, Glucophage, and Flonase. DISCHARGE DIAGNOSES Psychiatric: Psychosis, not otherwise specified, F29.0; bipolar mood disorder, recurrent, in mixed state, severe, F31.9; anxiety disorder, not otherwise specified, F40.01. Secondary diagnosis: Deferred. Medical diagnoses: History of diabetes, coronary artery disease, chronic back pain, pneumonia. Stressors: Psychosocial stressor. DISCHARGE INSTRUCTIONS The patient to follow up in outpatient clinic as per social media project manager. CONDITION ON DISCHARGE The patient was pleasant and cooperative. Denied any psychotic symptom or any suicidal ideation. PROGNOSIS Guarded. Unit #: [id number] #: [id number] Patient: TAMIR BARRETT JR DIET AND ACTIVITY As tolerated. Dictated by... Zurdo Chow M.D. TEVIN/que TD: 06/17/2017 16:21 JOB #: [id number] DISCHARGE SUMMARY Page 1 of 1 X Zurdo Chow MD DISCHARGE SUMMARY
[~2017-06-08 13:32] MED LIST changes: +ALPRAZOLAM0.5 MG PO; +AMRIX15 M1 PO; +ANORO ELLIPTA1 EACH INH; +BUPROPION XL150 MG PO; +DULOXETINE HCL60 MG PO; +IBUPROFEN800 MG PO; +LANTUS100 U/ML SUBQ; +LIPITOR40 MG PO; +NEURONTIN PO; +PERCOCET 5/321 UDTAB PO; +RESTORIL15 MG PO; +SINGULAIR PO; +TOPROL XL50 MG PO; +VESICARE PO; +ZOFRAN ODT4 MG SL
[2017-06-17 10:06] LABS: BUN/CREATININE RATIO 24.16; CALCIUM SERUM 9.5 mg/dL (8.4-10.2); CREATININE SERUM 1.2 mg/dL (0.6-1.4); GLOM FILT RATE Estimated 64.4 mL/min (>60)
== END 2017-06-17 10:45 | DRG 885 ==
LOC: P1S 20:24
PROVIDERS: Psychiatry & Neurology Psychiatry
DX: F33.2 Major depressive disorder, recurrent severe without psychotic features (principal); F20.9 Schizophrenia, unspecified; F41.9 Anxiety disorder, unspecified
CPT/HCPCS: 80048; 82140; 82947; J0515; J1630; J2060; J3230; J3486